=== PATIENT | female | born 1965 | race Two or more races ===

== ENCOUNTER 2018-01-10 18:02 | Emergency (ER) | payer BC ==
[2018-01-10 18:13] VITALS: BP 134/71; PULSE 109; TEMP 99.1; BMI 27.4
[2018-01-10] MEDS ORDERED: DEXAMETHASONE LIQUID 0.5 MG/5 ML 240 ML BULK BOTTLE PO ONE (18:39)
[2018-01-10] MEDS ORDERED: ALBUTEROL SO4 2.5/IPRATROPIUM 0.5 INH SOL 3 ML VIAL.NEB. NEB ONE ×2 (18:39→18:43)
[2018-01-10] MEDS ORDERED: DEXAMETHASONE SOD PHOSPHATE 10 MG/1 ML VIAL ONE (18:43)
--- NOTE | 2018-01-10 19:00 | PDOC ---
History of Present Illness - General Chief Complaint: Respiratory Stated Complaint: SORE THROAT Time Seen by Provider: 01/10/18 18:14 History Source: Patient Exam Limitations: No Limitations - History of Present Illness Initial Comments: 01/10/18 19:09 Patient is a 52-year-old female no past medical history who presents to the emergency department today for cough, sore throat for the past 3 weeks. Patient states approximately 3 weeks ago she initially noted her symptoms. She states that she started to feel better partly week ago and into [place] on vacation. Approximate 3 days and her troponin [place] she again felt sick with cough, congestion, sore throat. She states that since and the symptoms have been persistent for a week and getting worse. Denies fevers, chills, SOB, chest pain, n/v/d. Past History - Travel Traveled outside of the country in the last 30 days: No Close contact w/someone who was outside of country & ill: No - Past Medical History Allergies/Adverse Reactions: Allergies Allergy/AdvReac Type Severity Reaction Status Date / Time No Known Allergies Allergy Verified 01/10/18 18:09 Home Medications: Ambulatory Orders Albuterol Sulfate Inhaler - [Ventolin HFA Inhaler -] 1 - 2 inh PO Q4H #1 inhaler 01/10/18 Azithromycin [Zithromax 250mg Tablets -] 250 mg PO UTDICT #6 tab 01/10/18 Guaifenesin [Robitussin -] 100 mg PO Q4H #210 ml 01/10/18 predniSONE [Deltasone -] 40 mg PO DAILY #8 tablet 01/10/18 COPD: No - Surgical History GI Surgery: Yes (donated kidney) - Suicide/Smoking/Psychosocial Hx Smoking History: Never smoked Review of Systems - Review of Systems Able to Perform ROS?: Yes Comments:: 01/10/18 18:59 CONSTITUTIONAL: Absent: fever, chills, diaphoresis, generalized weakness, malaise, loss of appetite HEENT: Present: sore throat, rhinorrhea, congestion Absent: throat swelling, difficulty swallowing, mouth swelling, ear pain, eye pain, visual Changes CARDIOVASCULAR: Absent: chest pain, loss of consciousness, palpitations, irregular heart rate, peripheral edema RESPIRATORY: Present: productive cough Absent: shortness of breath, dyspnea with exertion, orthopnea, wheezing, stridor, hemoptysis GASTROINTESTINAL: Absent: abdominal pain, abdominal distension, nausea, vomiting, diarrhea, constipation, melena, hematochezia GENITOURINARY: Absent: dysuria, frequency, urgency, hesitancy, hematuria, flank pain, genital pain MUSCULOSKELETAL: Absent: myalgia, arthralgia, joint swelling SKIN: Absent: rash, itching, pallor HEMATOLOGIC/IMMUNOLOGIC: Absent: easy bleeding, easy bruising, lymphadenopathy, frequent infections ENDOCRINE: Absent: unexplained weight gain, unexplained weight loss, heat intolerance, cold intolerance NEUROLOGIC: Absent: headache, focal weakness or paresthesias, dizziness, unsteady gait, seizure, mental status changes, bladder or bowel incontinence PSYCHIATRIC: Absent: anxiety, depression, suicidal or homicidal ideation, hallucinations. Is the patient limited Pashto proficient: No *Physical Exam - Vital Signs Last Vital Signs Temp Pulse Resp BP Pulse Ox 99.1 F 109 H 18 134/71 100 01/10/18 18:10 01/10/18 18:10 01/10/18 18:10 01/10/18 18:10 01/10/18 18:10 - Physical Exam Comments: 01/10/18 18:59 GENERAL: Well developed, well nourished. Awake and alert. No acute distress. HEENT: Normocephalic, atraumatic. PERRLA, EOMI. No conjunctival pallor. Sclera are non- icteric. Moist mucous membranes. Oropharynx is clear. NECK: Supple. Full ROM. No JVD. Carotid pulses 2+ and symmetric, without bruits. No thyromegaly. No lymphadenopathy. CARDIOVASCULAR: Regular rate and rhythm. No murmurs, rubs, or gallops. Distal pulses are 2+ and symmetric. PULMONARY: No evidence of respiratory distress. Lungs clear to auscultation bilaterally with diminished sounds to the bases. No wheezing, rales or rhonchi. ABDOMINAL: Soft. Non-tender. Non-distended. No rebound or guarding. No organomegaly. Normoactive bowel sounds. MUSCULOSKELETAL Normal range of motion at all joints. No bony deformities or tenderness. No CVA tenderness. EXTREMITIES: No cyanosis. No clubbing. No edema. No calf tenderness. SKIN: Warm and dry. Normal capillary refill. No rashes. No jaundice. NEUROLOGICAL: Alert, awake, appropriate. Cranial nerves 2-12 intact. No deficits to light touch and temperature in face, upper extremities and lower extremities. No motor deficits in the in face, upper extremities and lower extremities. Normoreflexic in the upper and lower extremities. Normal speech. Toes are down- going bilaterally. Gait is normal without ataxia. PSYCHIATRIC: Cooperative. Good eye contact. Appropriate mood and affect. ED Treatment Course - RADIOLOGY Radiology Studies Ordered: Category Date Time Status CHEST PA & LAT [RAD] Stat Radiology 01/10/18 18:39 Ordered - Medications Given in the ED: ED Medications Discontinued Medications Generic Name Dose Route Start Last Admin Trade Name Chidi PRN Reason Stop Dose Admin Albuterol/Ipratropium 1 amp 01/10/18 18:39 01/10/18 18:50 Duoneb - NEB 01/10/18 18:40 1 amp ONCE ONE Administration Dexamethasone 10 mg 01/10/18 18:39 01/10/18 18:49 Decadron Liquid - PO 01/10/18 18:40 10 mg ONCE ONE Administration Medical Decision Making - Medical Decision Making 01/10/18 19:48 Pt is a 52 y/o F who presents with cough, congestion and sore throat for three weeks, including a week in [place] -Exam: lungs CTAB with poor inspiration to the bases -CXR is negative for PNA, or cavitations -Pt feels better after steroids and duoneb -Most likely a bronchitis -DC home with Z-pack and supportive treatment -Pt to f/u with PCP this week -I discussed the physical exam findings, ancillary test results and final diagnoses with the patient. I answered all of the patient's questions. The patient was satisfied with the care received and felt comfortable with the discharge plan and treatment plan. The Patient agrees to follow up with the primary care physician/specialist within 24-72 hours. Return precautions were given. *DC/Admit/Observation/Transfer Diagnosis at time of Disposition: Acute bronchitis Qualifiers: Bronchitis organism: unspecified organism Qualified Code(s): J20.9 - Acute bronchitis, unspecified - Discharge Dispostion Disposition: HOME Condition at time of disposition: Stable Decision to Admit order: No - Prescriptions Prescriptions: Albuterol Sulfate Inhaler - [Ventolin HFA Inhaler -] 1 - 2 inh PO Q4H #1 inhaler Azithromycin [Zithromax 250mg Tablets -] 250 mg PO UTDICT #6 tab Guaifenesin [Robitussin -] 100 mg PO Q4H #210 ml predniSONE [Deltasone -] 40 mg PO DAILY #8 tablet - Referrals Referrals: Bret Gusman [Primary Care Provider] - - Patient Instructions Printed Discharge Instructions: DI for Acute Bronchitis Additional Instructions: You have bronchitis. Your chest x-ray was negative for pneumonia. Please take the Z-Moody as directed. He may take Tylenol as needed for fevers. Follow directions on the bottle. Please use the albuterol inhaler every 4 hours as needed for cough. Please take the Robitussin every 6 hours as needed for the cough. Follow up with her primary care doctor this week. Return to the emergency department for fevers, difficulty breathing, or any new or worsening symptoms. - Post Discharge Activity
[2018-01-10] MEDS ORDERED: guaiFENesin/D-METHORPHAN HB 10 ML UNIT-DOSE CUPS PO ONE (19:04)
[2018-01-10] MEDS ORDERED: guaiFENesin/D-METHORPHAN HB 10 ML UNIT-DOSE CUPS ONE (19:16)
[2018-01-10] MEDS ORDERED: AZITHROMYCIN 250 MG TABLET PO ONE (19:52)
[2018-01-10] MEDS ORDERED: AZITHROMYCIN 250 MG TABLET ONE (19:53)
== END 2018-01-10 19:50 | disposition home or self-care (01) ==
LOC: JERFT 18:02
PROC: 3E0F7GC Introduction of Other Therapeutic Substance into Respiratory Tract, Via Natural or Artificial Opening (ICD-10-PCS; principal; 2018-01-10)
DX: J20.9 Acute bronchitis, unspecified (principal)
CPT/HCPCS: 71046-TC-FY; 99281-25